=== PATIENT | male | born 1970 | race Caucasian/White ===

== ENCOUNTER 2020-01-20 01:04 | Outpatient (CLI) | payer OTHER, SELFPAY ==
[2020-01-20 16:32] LABS: SARS-CoV-2 RNA PCR Negative
== END 2020-01-20 01:05 | disposition home or self-care (01) ==
LOC: ANHCOVIDDT 01:04
PROVIDERS: PCP Internal Medicine; Visit Provider Internal Medicine Gastroenterology
DX: Z01.812 Encounter for preprocedural laboratory examination (principal); Z20.828 Contact with and (suspected) exposure to other viral communicable diseases
CPT/HCPCS: 87635; C9803; U0003

== ENCOUNTER 2020-01-22 00:29 | Day surgery (SDC) | payer OTHER, SELFPAY ==
[2020-01-10 11:37] VITALS: BMI 24.5
[2020-01-22 11:14] VITALS: BP 109/77; PULSE 95; RESP 18; TEMP 36.5; O2SAT 97; BMI 23.8
[2020-01-22] MEDS: LACTATED RINGERS 1,000 ML 150 ML IV CONT (11:19)
--- NOTE | 2020-01-22 11:27 | P.PNAN_ITS ---
Anes - Initial Pre Proc Eval Procedure: Operation Date: 01/22/20 12:15 Proposed Procedures p Esophagogastroduodenoscopy & Colonoscopy - Manfred Rock MD Date/Time: 01/22/20 11:27 Surgeon: Manfred Rock MD Pre Op Diagnosis: Diarrhea, epigastric pain Patient Data Age: 49 Gender: M Height: 5 ft 11 in Weight: 77.7 kg Last Vital Signs Temp 36.5 C 01/22/20 11:14 Pulse 95 01/22/20 11:14 Resp 18 01/22/20 11:14 BP 109/77 01/22/20 11:14 Pulse Ox 97 01/22/20 11:14 Allergies Allergy/AdvReac Type Severity Reaction Status Date / Time aspirin Allergy Hives Verified 01/22/20 11:11 Home Medications Medication Instructions Recorded Confirmed Type pantoprazole 40 mg tablet,delayed 40 mg PO QAM 12/06/19 01/10/20 History release Patient hx anesthesia problems: none Family hx anesthesia problems: none [facility] Past Medical History Medical History Blood in stool Epigastric pain Social History Social History Years smoked: 20 Smoking status: Current every day smoker Tobacco type: cigarettes Second hand tobacco smoke exposure: Yes Alcohol intake: never Substance use type: does not use Living arrangements: with family Spiritual care concerns: No Anes - Eval Final PreProcedure Day of Procedure 01/22/20 11:27 Patient weight: normal Lungs: decreased breath sounds Airway: Mallampati scale class II Neurological: alert and oriented Last oral intake: >/= 8 hours ASA classification: III Emergent: no Anesthetic plan: proceed Anesthesia type and monitoring: general GIVS and standard monitoring Informed Consent: The patient's anesthetic plan and its attendant risks and benefits were discussed with the patient/family/POA. Questions were solicited and answers provided to the satisfaction of the patient/family/POA.
--- NOTE | 2020-01-22 12:22 | PM.HPGS ---
History of Present Illness History of Present Illness Consent: Risks, benefits, and alternatives have been discussed and questions answered. Patient agrees to proceed with procedure. Chief complaint: Diarrhea, epigastric pain Narrative: Susan Antunez Jr. is a 49 year old male with epigastric pain better on ppi, also loose stools Review of Systems Constitutional: Constitutional: Denies headache(s) and Denies weakness Eyes: Eyes: Denies blurry vision ENT: Reports Normal hearing present, Denies headache(s) and Denies neck pain Cardiovascular: Cardiovascular: Denies chest pain and Denies dyspnea Respiratory: Respiratory: Denies dyspnea Gastrointestinal: Gastrointestinal: Reports no additional gastrointestinal complaints Genitourinary: Genitourinary: Denies dysuria Musculoskeletal: Musculoskeletal: Denies neck pain Integumentary/Breasts: Skin/Breast: Denies dry skin Neurologic: Reports Normal hearing present, Denies headache(s) and Denies weakness Psychiatric: Psychiatric: Denies anxiety Endocrine: Endocrine: Denies change in body appearance Hematologic/Lymphatic: Hematologic/Lymphatic: Denies easy bleeding Allergic/Immunologic: Allergic/Immunologic: Denies urticaria PMFSH Past Medical History Medical History Blood in stool Epigastric pain Social History Social History Years smoked: 20 Smoking status: Current every day smoker Tobacco type: cigarettes Second hand tobacco smoke exposure: Yes Alcohol intake: never Substance use type: does not use Living arrangements: with family Spiritual care concerns: No Meds Home Medications and Allergies Home Medications Medication Instructions Recorded Confirmed Type pantoprazole 40 mg tablet,delayed 40 mg PO QAM 12/06/19 01/10/20 History release Allergies Allergy/AdvReac Type Severity Reaction Status Date / Time aspirin Allergy Hives Verified 01/22/20 11:11 Vital Signs Vital Signs - 24 hr 01/22/20 11:14 Temperature 97.7 F Pulse Rate 95 Respiratory Rate 18 Blood Pressure 109/77 Pulse Oximetry 97 Exam Const: General: comfortable and no acute distress HENMT: General nose exam: Normal nares present Eyes: General: appearance normal, both eyes and all related structures Neck: Neck: no JVD Resp: Auscultation: clear to auscultation bilaterally Cardio: Rate: regular rate Rhythm: regular rhythm GI: Inspection: non-distended GI Palp: Yes Soft to palpation Skin: General skin exam: normal color Neuro: General: gait normal Speech: normal speech Extrem: General: normal to inspection Psych: Mental Status: mental status grossly normal Assessment and Plan Assessment and plan (1) Epigastric pain: Code(s): R10.13 - Epigastric pain Status: Acute Assessment and Plan: will proceed with egd and bx (2) Blood in stool: Code(s): K92.1 - Melena Status: Acute Assessment and Plan: colonoscopy
[2020-01-22 13:06] VITALS: BP 95/67; PULSE 76; RESP 17; O2SAT 97
[2020-01-22 13:16] VITALS: BP 100/67; PULSE 68; RESP 16; O2SAT 96
[2020-01-22 13:26] VITALS: BP 102/63; PULSE 65; RESP 17; O2SAT 99
== END 2020-01-22 13:45 | disposition home or self-care (01) ==
PROVIDERS: PCP Internal Medicine; Visit Provider Internal Medicine Gastroenterology
PROC: 0DJ08ZZ Inspection of Upper Intestinal Tract, Via Natural or Artificial Opening Endoscopic (ICD-10-PCS; CPT 43235; principal; 2020-01-22 12:15)
DX: K92.1 Melena (principal); D12.2 Benign neoplasm of ascending colon; K63.5 Polyp of colon; K29.00 Acute gastritis without bleeding; B96.81 Helicobacter pylori [H. pylori] as the cause of diseases classified elsewhere; R19.7 Diarrhea, unspecified; F17.210 Nicotine dependence, cigarettes, uncomplicated
CPT/HCPCS: 45380; 45385; 87635; 88305; 88342; C9803; J2704; J7120; U0003

== ENCOUNTER 2021-01-06 10:22 | Outpatient (CLI) | payer OTHER, SELFPAY ==
[2021-01-06 11:38] LABS: SARS-CoV-2 RNA PCR Negative (Negative)
== END 2021-01-06 10:23 | disposition home or self-care (01) ==
LOC: CHSLAB 10:24
PROVIDERS: PCP Internal Medicine; Visit Provider Internal Medicine
DX: Z20.822 Contact with and (suspected) exposure to COVID-19 (principal)
CPT/HCPCS: C9803; U0003; U0005

== ENCOUNTER 2021-04-13 11:02 | Outpatient (CLI) | payer OTHER, SELFPAY ==
[2021-04-13 12:09] LABS: Influenza A QL RT-PCR Negative (Negative); Influenza B QL RT-PCR Negative (Negative); SARS-CoV-2 RNA PCR Negative (Negative)
== END 2021-04-13 11:03 | disposition home or self-care (01) ==
LOC: CHSLAB 11:04
PROVIDERS: PCP Internal Medicine; Visit Provider Internal Medicine
DX: R50.9 Fever, unspecified (principal); R05.9 Cough, unspecified; Z20.822 Contact with and (suspected) exposure to COVID-19
CPT/HCPCS: 87502; C9803; U0003; U0005

== ENCOUNTER 2021-06-08 11:24 | Outpatient (CLI) | payer OTHER, SELFPAY ==
[2021-06-08 12:23] LABS: SARS-CoV-2 Ag Positive (Negative)
== END 2021-06-08 11:25 | disposition home or self-care (01) ==
LOC: CHSLAB 11:26
PROVIDERS: PCP Internal Medicine; Visit Provider Internal Medicine
DX: U07.1 COVID-19 (principal); J06.9 Acute upper respiratory infection, unspecified
CPT/HCPCS: 87426; C9803

== ENCOUNTER 2021-06-14 18:44 | Emergency (ER) | payer OTHER, SELFPAY ==
--- NOTE | ~2021-06-14 | XR_ITS ---
EXAMINATION: XR chest 1V portable EXAM DATE: 06/14/2021 19:39 INDICATION: COVID positive with congestion and central chest pain. TECHNIQUE: Portable AP frontal chest x-ray was obtained. There is no prior study for comparison. FINDINGS: The lungs are clear. There are no pleural effusions. The cardiomediastinal silhouette is within normal limits. There is no pneumothorax suspected. The bones and soft tissues are unremarkab le. IMPRESSION: No acute cardiopulmonary findings. Reviewed, dictated and finalized at location G. PING/RECEIVING CLERK
[2021-06-14 19:35] VITALS: BP 139/89; PULSE 79; RESP 18; TEMP 36.8; O2SAT 97
[2021-06-14 19:42] LABS: Basophils Absolute Auto 0.02 K/mm3 (0.00-0.10); Basophils Percent Auto 0.4 % (0.0-1.0); Eosinophils Absolute Auto 0.07 K/mm3 (0.02-0.50); Eosinophils Percent Auto 1.5 % (1.0-6.0); Hematocrit 48.3 % (40.0-54.0); Hemoglobin 16.7 g/dL (14.0-18.0); Immature Granulocyte Absolute 0.01 K/mm3 (0.00-0.00); Immature Granulocyte Percent A 0.2 % (0.0-0.0); Lymphocytes Absolute Auto 1.63 K/mm3 (1.10-4.50); Lymphocytes Percent Auto 34.7 % (18.0-42.0); Mean Corpuscular HGB Conc 34.6 g/dL (32.0-36.0); Mean Corpuscular Hemoglobin 30.5 pg (27.0-31.0); Mean Corpuscular Volume 88.3 fL (78.0-102.0); Mean Platelet Volume 9.9 fl (8.7-11.0); Monocytes Absolute Auto 0.39 K/mm3 (0.10-0.90); Monocytes Percent Auto 8.3 % (2.0-11.0); Neutrophils Absolute Auto 2.6 K/mm3 (1.7-7.2); Neutrophils Percent Auto 54.9 % (50.0-70.0); Platelet Count Result 181 K/mm3 (150-420); Red Blood Count 5.47 M/mm3 (4.70-6.10); Red Cell Distribution Width 12.2 % (11.6-14.4); White Blood Count 4.7 K/mm3 (4.8-10.8)
--- NOTE | 2021-06-14 19:43 | ED.HA ---
HPI - Headache General Chief Complaint: Headache Stated Complaint: COVID+,headache,congestion,SOB Time Seen by Provider: 06/14/21 19:43 Source: patient Mode of arrival: ambulatory Limitations: no limitations History of Present Illness HPI Narrative: this is a 51-year-old gentleman that recently tested positive for COVID and presents to the ER with some headache with body aches currently O2 sats 97% patient is afebrile with no shortness of breath no chest pain no abdominal pain no diarrhea constipation. MD elicited complaint: headache Onset (ago): day(s) Onset description: gradually Severity: moderate Quality & Timing: aching Related Data Allergies Allergy/AdvReac Type Severity Reaction Status Date / Time aspirin Allergy Hives Verified 01/22/20 11:11 Review of Systems Review of Systems: All systems reviewed & are unremarkable except as noted in HPI and below PMFSH Past Medical History Medical History (Updated 06/14/21 @ 20:09 by Jareth Beyer MD) Blood in stool Epigastric pain Social History Social History Years smoked: 20 Smoking status: Current every day smoker Tobacco type: cigarettes Second hand tobacco smoke exposure: Yes Alcohol intake: never Substance use type: does not use Spiritual care concerns: No Exam Const: General: no acute distress Orientation/consciousness: patient oriented x3 HENMT: Head: normal to inspection Eyes: Conjunctivae: conjunctivae normal Pupils: Equal, round and reactive pupils present Neck: Neck: normal visual inspection, no lymphadenopathy and no meningeal signs Chest: Chest palpation & inspection: normal inspection of the chest Resp: Effort & Inspection: normal respiratory effort Auscultation: clear to auscultation bilaterally Cardio: Rate: regular rate Rhythm: regular rhythm GI: GI Palp: Yes Soft to palpation Percussion: Yes normal to percussion Urinary Catheter: Urinary Catheter: patent and draining Back/Spine/Pelvis: Back: no CVA tenderness Skin: General skin exam: normal color Rashes: no rashes Neuro: General: patient oriented x3, moves all extremities, no meningeal signs and no focal motor deficits Extrem: General: normal to inspection and no pedal edema Psych: Mental Status: mental status grossly normal Affect: normal affect Course Course Emergency Course: Patient's x-ray and blood work reviewed with patient patient received IV fluids albuterol MDI and dose of Tylenol. Vital Signs Vital signs: Vital Signs Temperature 36.8 C 06/14/21 19:35 Pulse Rate 79 06/14/21 19:35 Respiratory Rate 18 06/14/21 19:35 Blood Pressure 139/89 06/14/21 19:35 Pulse Oximetry 97 06/14/21 19:35 Temperature 36.8 C 06/14/21 19:35 Pulse Rate 79 06/14/21 19:35 Respiratory Rate 18 06/14/21 19:35 Blood Pressure 139/89 06/14/21 19:35 Pulse Oximetry 97 06/14/21 19:35 MDM - Headache Lab Data Result diagrams: 06/14/21 19:38 06/14/21 19:38 Labs: Lab Results 06/14/21 06/14/21 Range/Units 19:38 19:38 WBC 4.7 L (4.8-10.8) K/mm3 RBC 5.47 (4.70-6.10) M/mm3 Hgb 16.7 (14.0-18.0) g/dL Hct 48.3 (40.0-54.0) % MCV 88.3 (78.0-102.0) fL MCH 30.5 (27.0-31.0) pg MCHC 34.6 (32.0-36.0) g/dL RDW 12.2 (11.6-14.4) % Plt Count 181 (150-420) K/mm3 MPV 9.9 (8.7-11.0) fl Immature Gran % (Auto) 0.2 H (0.0-0.0) % Neut % (Auto) 54.9 (50.0-70.0) % Lymph % (Auto) 34.7 (18.0-42.0) % Fleming % (Auto) 8.3 (2.0-11.0) % Eos % (Auto) 1.5 (1.0-6.0) % Baso % (Auto) 0.4 (0.0-1.0) % Lymph # (Auto) 1.63 (1.10-4.50) K/mm3 Fleming # (Auto) 0.39 (0.10-0.90) K/mm3 Eos # (Auto) 0.07 (0.02-0.50) K/mm3 Baso # (Auto) 0.02 (0.00-0.10) K/mm3 Abs Immat Gran (auto) 0.01 H (0.00-0.00) K/mm3 Absolute Neuts (auto) 2.6 (1.7-7.2) K/mm3 Absolute Nucleated RBC 0.00 (0.00-0.00) K/mm3 Nucleat
[2021-06-14] MEDS: ACETAMINOPHEN 500 MG TABLET 1000 MG PO (19:56)
[2021-06-14] MEDS: SODIUM CHLORIDE 0.9% IV 1,000 ML 999 ML IV CONT (19:57)
[2021-06-14 19:59] LABS: Alanine Aminotransferase 34 U/L (16-63); Albumin Level 3.4 g/dL (3.4-5.0); Alkaline Phosphatase 58 U/L (46-116); Anion Gap 12 mmol/L (8-16); Aspartate Amino Transferase 16 U/L (15-37); Bilirubin,Total 0.3 mg/dL (0.00-1.00); Blood Urea Nitrogen 14 mg/dL (7-18); Calcium 8.8 mg/dL (8.5-10.1); Carbon Dioxide 24 mmol/L (21-32); Chloride 104 mmol/L (98-108); Estimated CRCL calculation 70 ml/min; Estimated Glomerular Filt Rate > 60; Glucose 117 mg/dL (70-99); Osmolality Calculated 291 mOsm/kg (285-295); Potassium 3.5 mmol/L (3.5-5.1); Sodium 140 mmol/L (136-145); Total Protein 7.1 g/dL (6.4-8.2)
[2021-06-14] MEDS: ALBUTEROL SULFATE (*SP) INHALER 2 PUFF INHALATION (20:02)
[2021-06-14 20:22] VITALS: PULSE 79; RESP 18; O2SAT 97
[2021-06-14 21:28] VITALS: BP 125/88; PULSE 72; RESP 18; TEMP 36.7; O2SAT 97
== END 2021-06-14 21:31 | disposition home or self-care (01) ==
PROVIDERS: Emergency Provider Emergency Medicine; PCP Internal Medicine
DX: U07.1 COVID-19 (principal)
CPT/HCPCS: 36415; 71045; 80053; 85025; 99283; A9270; J7030

== ENCOUNTER 2022-01-06 13:52 | Outpatient (CLI) | payer OTHER, SELFPAY ==
[2022-01-06 14:04] LABS: Basophils Absolute Auto 0.04 K/mm3 (0.00-0.10); Basophils Percent Auto 0.6 % (0.0-1.0); Eosinophils Absolute Auto 0.15 K/mm3 (0.02-0.50); Eosinophils Percent Auto 2.2 % (1.0-6.0); Hematocrit 48.9 % (40.0-54.0); Hemoglobin 16.3 g/dL (14.0-18.0); Immature Granulocyte Absolute 0.01 K/mm3 (0.00-0.00); Immature Granulocyte Percent A 0.1 % (0.0-0.0); Lymphocytes Absolute Auto 2.04 K/mm3 (1.10-4.50); Lymphocytes Percent Auto 29.9 % (18.0-42.0); Mean Corpuscular HGB Conc 33.3 g/dL (32.0-36.0); Mean Corpuscular Hemoglobin 30.2 pg (27.0-31.0); Mean Corpuscular Volume 90.7 fL (78.0-102.0); Mean Platelet Volume 9.5 fl (8.7-11.0); Monocytes Absolute Auto 0.51 K/mm3 (0.10-0.90); Monocytes Percent Auto 7.5 % (2.0-11.0); Neutrophils Absolute Auto 4.1 K/mm3 (1.7-7.2); Neutrophils Percent Auto 59.7 % (50.0-70.0); Platelet Count Result 263 K/mm3 (150-420); Red Blood Count 5.39 M/mm3 (4.70-6.10); Red Cell Distribution Width 12.7 % (11.6-14.4); White Blood Count 6.8 K/mm3 (4.8-10.8)
[2022-01-06 14:06] LABS: Add Urine Microscopic? NO; Appearance Urine Clear (Clear); Bilirubin Urine Negative (Negative); Blood Urine Negative (Negative); Color Urine Yellow (Yellow); Glucose Urine UA Negative (Negative); Ketones Urine Negative (Negative); Leukocyte Esterase Ur Negative (Negative); Nitrate Urine Negative (Negative); Protein Urine Negative (Negative); Specific Grav Ur 1.025 (1.010-1.020); Urobilinogen Urine 0.2 mg/dL (0.2-1.0)
[2022-01-06 14:31] LABS: Alanine Aminotransferase 33 U/L (16-63); Albumin Level 3.8 g/dL (3.4-5.0); Alkaline Phosphatase 75 U/L (46-116); Amylase 57 U/L (25-115); Anion Gap 6 mmol/L (8-16); Aspartate Amino Transferase 20 U/L (15-37); Bilirubin,Total 0.3 mg/dL (0.00-1.00); Blood Urea Nitrogen 16 mg/dL (7-18); Calcium 9.3 mg/dL (8.5-10.1); Carbon Dioxide 27 mmol/L (21-32); Chloride 104 mmol/L (98-108); Estimated Glomerular Filt Rate > 60; Glucose 91 mg/dL (70-99); Lipase 85 U/L (73-393); Osmolality Calculated 285 mOsm/kg (285-295); Potassium 3.9 mmol/L (3.5-5.1); Prostate Specific Antigen 4.8 ng/mL (< OR = 4.0); Sodium 137 mmol/L (136-145); Total Protein 7.3 g/dL (6.4-8.2)
== END 2022-01-06 13:53 | disposition home or self-care (01) ==
LOC: CHSLAB 13:54
PROVIDERS: PCP Internal Medicine; Visit Provider Nurse Practitioner Family
DX: R30.0 Dysuria (principal); N41.9 Inflammatory disease of prostate, unspecified; R10.9 Unspecified abdominal pain; M54.9 Dorsalgia, unspecified
CPT/HCPCS: 36415; 80053; 81003; 82150; 83690; 84153; 85025; 87086

== ENCOUNTER 2022-02-01 15:04 | Outpatient (CLI) | payer OTHER, SELFPAY ==
[2022-02-01 16:26] LABS: Prostate Specific Antigen 5.3 ng/mL (< OR = 4.0)
== END 2022-02-01 15:05 | disposition home or self-care (01) ==
LOC: CHSLAB 15:06
PROVIDERS: PCP Internal Medicine; Visit Provider Internal Medicine
DX: N41.9 Inflammatory disease of prostate, unspecified (principal)
CPT/HCPCS: 36415; 84153

== ENCOUNTER 2022-11-19 07:18 | Outpatient (CLI) | payer OTHER, SELFPAY ==
[2022-11-19 07:29] LABS: Basophils Absolute Auto 0.02 K/mm3 (0.00-0.10); Basophils Percent Auto 0.3 % (0.0-1.0); Eosinophils Absolute Auto 0.15 K/mm3 (0.02-0.50); Eosinophils Percent Auto 1.9 % (1.0-6.0); Hematocrit 48.7 % (40.0-54.0); Hemoglobin 16.4 g/dL (14.0-18.0); Immature Granulocyte Absolute 0.02 K/mm3 (0.00-0.00); Immature Granulocyte Percent A 0.3 % (0.0-0.0); Lymphocytes Absolute Auto 1.81 K/mm3 (1.10-4.50); Lymphocytes Percent Auto 23.5 % (18.0-42.0); Mean Corpuscular HGB Conc 33.7 g/dL (32.0-36.0); Mean Corpuscular Hemoglobin 30.9 pg (27.0-31.0); Mean Corpuscular Volume 91.9 fL (78.0-102.0); Mean Platelet Volume 9.3 fl (8.7-11.0); Monocytes Absolute Auto 0.46 K/mm3 (0.10-0.90); Neutrophils Absolute Auto 5.2 K/mm3 (1.7-7.2); Platelet Count Result 248 K/mm3 (150-420); Red Cell Distribution Width 12.5 % (11.6-14.4); White Blood Count 7.7 K/mm3 (4.8-10.8)
[2022-11-19 07:36] LABS: Appearance Urine Clear (Clear); Bilirubin Urine Negative (Negative); Blood Urine Negative (Negative); Color Urine Yellow (Yellow); Glucose Urine UA Negative (Negative); Ketones Urine Negative (Negative); Leukocyte Esterase Ur Negative (Negative); Nitrate Urine Negative (Negative); Protein Urine Negative (Negative); Specific Grav Ur 1.025 (1.010-1.020); Urobilinogen Urine 0.2 mg/dL (0.2-1.0); pH Urine 5.5 (5.0-8.0)
[2022-11-19 07:37] LABS: Add Urine Microscopic? NO
[2022-11-19 08:35] LABS: Alanine Aminotransferase 28 U/L (16-63); Albumin Level 3.6 g/dL (3.4-5.0); Alkaline Phosphatase 78 U/L (46-116); Anion Gap 7 mmol/L (8-16); Aspartate Amino Transferase 17 U/L (15-37); Bilirubin,Total 0.6 mg/dL (0.00-1.00); Blood Urea Nitrogen 15 mg/dL (7-18); Calcium 9.3 mg/dL (8.5-10.1); Carbon Dioxide 28 mmol/L (21-32); Chloride 106 mmol/L (98-108); Cholesterol 194 mg/dL (0-200); Estimated Glomerular Filt Rate > 60; Glucose 102 mg/dL (70-99); HDL Direct 40 mg/dL (40-60); LDL Cholesterol Calculated 135 mg/dL (<130); Osmolality Calculated 292 mOsm/kg (285-295); Potassium 4.6 mmol/L (3.5-5.1); Prostate Specific Antigen 5.3 ng/mL (< OR = 4.0); Sodium 141 mmol/L (136-145); Thyroid Stimulating Hormone 2.41 uIU/mL (0.36-3.74); Total Protein 6.8 g/dL (6.4-8.2); Triglycerides 95 mg/dL (0-150)
== END 2022-11-19 07:19 | disposition home or self-care (01) ==
LOC: CHSLAB 07:19
PROVIDERS: PCP Internal Medicine; Visit Provider Internal Medicine
DX: Z00.00 Encounter for general adult medical examination without abnormal findings (principal)
CPT/HCPCS: 36415; 80053; 80061; 81003; 84153; 84443; 85025; G0103

== ENCOUNTER 2022-11-23 07:45 | Outpatient (CLI) | payer OTHER, SELFPAY ==
--- NOTE | ~2022-11-23 | CT_ITS ---
EXAMINATION: CT lung screening DATE: 11/23/2022 08:05 INDICATION: Personal history nicotine dependence, current smoker with 30 pack year history TECHNIQUE: Computed tomography (CT) of the chest was performed without intravenous contrast. The dose -length product (DLP) was 161.34 mGy-cm. 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 COMPARISON: None FINDINGS: There is mild emphysema. There is a 6 mm non solid nodule of the right upper lobe. The lung s are free of acute opacities. No pathologically enlarged thoracic lymph nodes are identified. The he art size is normal. No pleural effusion or pneumothorax. There is mild bilateral gynecomastia. A smal l sliding hiatal hernia is noted. There is mild thoracic spondylosis. IMPRESSION: 1. Lung-RADS category 2: Benign appearance or behavior. Continue annual screening with noncontrast lo w-dose chest CT in 12 months. Reviewed, dictated and finalized at location B. IMPRESSION: 1. Lung-RADS category 2: Benign appearance or behavior. Continue annual screeni ng with noncontrast low-dose chest CT in 12 months.
== END 2022-11-23 07:46 | disposition home or self-care (01) ==
LOC: CHSIMG 07:46
PROVIDERS: PCP Internal Medicine; Visit Provider Internal Medicine
DX: Z12.2 Encounter for screening for malignant neoplasm of respiratory organs (principal); Z87.891 Personal history of nicotine dependence
CPT/HCPCS: 71271

== ENCOUNTER 2023-12-16 07:09 | Outpatient (CLI) | payer OTHER, SELFPAY ==
[2023-12-16 08:00] LABS: Hematocrit 50.3 % (40.0-54.0); Hemoglobin 17.1 g/dL (14.0-18.0); Mean Corpuscular Hemoglobin 30.3 pg (27.0-31.0); Mean Corpuscular Volume 89.2 fL (78.0-102.0); Mean Platelet Volume 9.7 fl (8.7-11.0); Platelet Count Result 267 K/mm3 (150-420); Red Blood Count 5.64 M/mm3 (4.70-6.10); Red Cell Distribution Width 12.4 % (11.6-14.4); White Blood Count 6.6 K/mm3 (4.8-10.8)
[2023-12-16 08:34] LABS: Alanine Aminotransferase 29 U/L (16-63); Albumin Level 3.6 g/dL (3.4-5.0); Alkaline Phosphatase 74 U/L (46-116); Anion Gap 9 mmol/L (4-12); Aspartate Amino Transferase 16 U/L (15-37); Bilirubin,Total 0.4 mg/dL (0.00-1.00); Blood Urea Nitrogen 15 mg/dL (7-18); Calcium 9.1 mg/dL (8.5-10.1); Carbon Dioxide 25 mmol/L (21-32); Chloride 105 mmol/L (98-108); Cholesterol 217 mg/dL (0-200); Estimated Glomerular Filt Rate > 60; Glucose 118 mg/dL (70-99); HDL Direct 43 mg/dL (40-60); LDL Cholesterol Calculated 149 mg/dL (<130); Osmolality Calculated 289 mOsm/kg (285-295); Potassium 4.1 mmol/L (3.5-5.1); Sodium 139 mmol/L (136-145); Thyroid Stimulating Hormone 2.12 uIU/mL (0.36-3.74); Triglycerides 124 mg/dL (0-150)
== END 2023-12-16 07:10 | disposition home or self-care (01) ==
LOC: CHSLAB 07:12
PROVIDERS: PCP Internal Medicine; Visit Provider Internal Medicine
DX: Z00.00 Encounter for general adult medical examination without abnormal findings (principal)
CPT/HCPCS: 36415; 80053; 80061; 84443; 85027

== ENCOUNTER 2025-01-31 00:29 | Day surgery (SDC) | payer OTHER, SELFPAY ==
[2025-01-16 11:53] VITALS: BMI 28.1
--- OUTSIDE RECORDS SUMMARY | 2025-01-31 00:31 | XMS_ITS | Clinical Summary ---
Author Organization [facility] Address [address] [place] [id number] Care Team Providers Care Dredge Pipe Installer Name Role Phone Obi Villa MD Primary Care Provider [phone] Allergies Active Allergy Reactions Criticality Noted Date Comments Aspirin Unknown 11/09/2019 Medications ondansetron 4 MG disintegrating tablet Take 1 tablet (4 mg total) by mouth every 8 (eight) hours as needed for Nausea. 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 Gender Identity Not on file Sexual Orientation Not on file Last Filed Vital Signs Vital Sign Reading Time Taken Comments Blood Pressure 125/81 11/09/2019 11:30 AM CDT Pulse 65 11/09/2019 11:30 AM CDT Temperature 36.7 C (98 F) 11/09/2019 9:39 AM CDT Respiratory Rate 18 11/09/2019 11:30 AM CDT Oxygen Saturation 98% 11/09/2019 11:30 AM CDT Inhaled Oxygen Concentration - - Weight 81.6 kg (180 lb) 11/09/2019 9:36 AM CDT Height 175.3 cm (5' 9) 11/09/2019 9:36 AM CDT Body Mass Index 26.58 11/09/2019 9:36 AM CDT Plan of Treatment Health Maintenance Due Date Last Done Comments Colorectal Cancer Screening Colonoscopy (10 Years) 1971 Annual Physical 1974 Hepatitis C 1989 DTaP, Tdap and Td Vaccines ( 1 - Tdap) 1990 Hepatitis B Vaccines (1 of 3 - 19+ 3-dose series) 1990 Pneumococcal Vaccine: 50+ Ye ars (1 of 2 - PCV) 1990 Zoster Vaccines (1 of 2) 2021 COVID-19 Vaccine (1 - 2023-2 5 season) 2025 Meningococcal B Vaccine Aged Out No l onger eligible based on patient's age to complete this topic Meningococcal Vaccine Aged Out No james elinor eligible based on patient's age to complete this topic RSV Immunizations Under 20 Months Aged Out No longer eligible based on patient's age to complete this topic Insurance [facility] Care Teams Dredge Pipe Installer Relationship Specialty Start Date End Date Obi Villa MD [address] [place] [address] PCP - General INTERNAL MEDICINE 11/09/19
[2025-01-31 07:13] VITALS: BP 198/139; PULSE 70; RESP 18; TEMP 36.1; O2SAT 98
--- NOTE | 2025-01-31 07:23 | WPDANESEPPF ---
Anes - Initial Pre Proc Eval Procedure: Operation Date: 01/31/25 08:30 Proposed Procedures p EGD & Screening Colonoscopy - Manfred Rock MD Date/Time: 01/31/25 07:23 Surgeon: Manfred Rock MD Pre Op Diagnosis: GERD/epigastric pain/screening Patient Data Age: 54 Gender: M Height: 1.75 m Weight: 78.3 kg Last Vital Signs Temp 36.1 C L 01/31/25 07:13 Pulse 70 01/31/25 07:13 Resp 18 01/31/25 07:13 BP 198/139 H 01/31/25 07:13 Pulse Ox 98 01/31/25 07:13 O2 Del Method Room Air 01/31/25 07:13 Allergies Allergy/AdvReac Type Severity Reaction Status Date / Time aspirin Allergy Hives Verified 01/31/25 07:12 Home Medications ?Medication ?Instructions ?Recorded ?Confirmed ?Type albuterol sulfate 90 mcg/actuation 2 puff inhalation QID PRN 06/14/21 01/16/25 Rx aerosol inhaler (ProAir HFA) shortness of breath or wheezing #6.7 grams pantoprazole 40 mg tablet,delayed 40 mg PO QAM 01/16/25 01/31/25 History release tamsulosin 0.4 mg capsule 0.4 mg PO Q24H 01/16/25 01/31/25 History Patient hx anesthesia problems: none Family hx anesthesia problems: none Results Review: All pre-operative results and documents have been reviewed as part of the pre-operative evaluation. [facility] Past Medical History Medical History (Updated 01/31/25 @ 07:23 by Nic Bhakta MD) Smoker Colon polyps Epigastric pain Blood in stool Surgical History Surgical History (Updated 01/31/25 @ 07:23 by Nic Bhakta MD) H/O colonoscopy Social History Social History Years smoked: 20 Smoking status: Current every day smoker Tobacco type: cigarettes Second hand tobacco smoke exposure: Yes Alcohol intake: never Substance use type: does not use Living arrangements: with family Spiritual care concerns: No Anes - Eval Final PreProcedure Day of Procedure 01/31/25 07:23 Patient weight: normal Heart: regular rate and rhythm Lungs: clear to auscultation Airway: Mallampati scale class II Neurological: alert and oriented Last oral intake: >/= 8 hours ASA classification: III Emergent: no Anesthetic plan: proceed Anesthesia type and monitoring: general GIVS and standard monitoring Results Review: All pre-operative results and documents have been reviewed as part of the pre-operative evaluation. Informed Consent: The patient's anesthetic plan and its attendant risks and benefits were discussed with the patient/family/POA. Questions were solicited and answers provided to the satisfaction of the patient/family/POA.
[2025-01-31] MEDS: LACTATED RINGERS 1,000 ML 150 ML IV CONT (07:24)
--- NOTE | 2025-01-31 08:02 | SUR.PREOP ---
DR BONILLA NOTIFIED OF PT'S BLOOD PRESSURE 198/139, NO NEW ORDERS, DR ROSIE PT.
--- NOTE | 2025-01-31 08:13 | PM.HPGS ---
History of Present Illness History of Present Illness Consent: Risks, benefits, and alternatives have been discussed and questions answered. Patient agrees to proceed with procedure. Chief complaint: GERD/epigastric pain/screening Narrative: Susan Antunez Jr. is a 54 year old male with colon polyp in 2019, gerd on ppi, had + H pylori Review of Systems Review of Systems: All systems reviewed & are unremarkable except as noted in HPI and below PMFSH Past Medical History Medical History (Updated 01/31/25 @ 08:14 by Manfred Rock MD) Colon polyps Smoker Epigastric pain Blood in stool Surgical History Surgical History (Updated 01/31/25 @ 07:23 by Nic Bhakta MD) H/O colonoscopy Social History Social History Years smoked: 20 Smoking status: Current every day smoker Tobacco type: cigarettes Second hand tobacco smoke exposure: Yes Alcohol intake: never Substance use type: does not use Living arrangements: with family Spiritual care concerns: No Meds Home Medications and Allergies Home Medications ?Medication ?Instructions ?Recorded ?Confirmed ?Type albuterol sulfate 90 mcg/actuation 2 puff inhalation QID PRN 06/14/21 01/16/25 Rx aerosol inhaler (ProAir HFA) shortness of breath or wheezing #6.7 grams pantoprazole 40 mg tablet,delayed 40 mg PO QAM 01/16/25 01/31/25 History release tamsulosin 0.4 mg capsule 0.4 mg PO Q24H 01/16/25 01/31/25 History Allergies Allergy/AdvReac Type Severity Reaction Status Date / Time aspirin Allergy Hives Verified 01/31/25 07:12 Vital Signs Vital Signs - 24 hr 01/31/25 07:13 Temperature 97 F L Pulse Rate 70 Respiratory Rate 18 Blood Pressure 198/139 H Pulse Oximetry 98 Oxygen Delivery Room Air Exam Const: General: comfortable and no acute distress HENMT: Face/Nose/Sinus: Normal nares present Eyes: General: appearance normal, both eyes and all related structures Neck: Neck: no JVD Resp: Auscultation: clear to auscultation bilaterally Cardio: Rate: regular rate Rhythm: regular rhythm GI: Inspection: non-distended GI Palp: Yes Soft to palpation Skin: General skin exam: normal color Neuro: Speech: normal speech Extrem: General: normal to inspection Psych: Mental Status: mental status grossly normal Assessment and Plan Assessment and plan (1) Acid reflux: Qualifiers: Esophagitis presence: without esophagitis Qualified Code(s): K21.9 - Gastro-esophageal reflux disease without esophagitis Code(s): K21.9 - Gastro-esophageal reflux disease without esophagitis Status: Acute Assessment and Plan: egd with bx (2) Colon polyps: Qualifiers: Colon polyp type: adenomatous Colon location: ascending Qualified Code(s): D12.2 - Benign neoplasm of ascending colon Code(s): K63.5 - Polyp of colon Status: Acute Assessment and Plan: colonoscopy
[2025-01-31] MEDS: BENZOCAINE (*SP) 60 ML SPRAY CAN (HURRICAINE) 1 SPRAY MUCOUS MEM (08:20)
--- NOTE | 2025-01-31 08:29 | S_PTH ---
PATIENT: Susan Antunez Jr. LOC: [facility]#:[id number] AGE/SX: 54/M ROOM: RE01/31/[address]: Manfred Rock MD : 1970 BED: DIS: 01/31/2025 SPEC #: [id number] RECD: 01/31/25 09:46 STATUS: DEANA RELeonor #: [id number] CARLOS: 01/31/25 08:[address]: Manfred Rock DEPT: [facility] Surgical RECD BY: Jeannette Miller ENTERED: 01/31/25 09:46 SP TYPE: Surgical OTHR DR: Obi Villa MD Tissues: A - Gastric Biopsy B - Colon Polypectomy Procedures: Hematoxylin and Eosin Stain Gross and Microscopic Level 4
--- NOTE | 2025-01-31 08:29 | SUR.OPER ---
EGD: COLON: Start 827
[2025-01-31 08:41] VITALS: BP 103/74; PULSE 64; RESP 18; O2SAT 98
[2025-01-31 08:51] VITALS: BP 110/72; PULSE 63; RESP 18; O2SAT 98
[2025-01-31 09:01] VITALS: BP 121/74; PULSE 68; RESP 18; O2SAT 98
[2025-01-31 09:59] LABS: HPYLORIRESULT Negative (Negative)
== END 2025-01-31 09:09 | disposition home or self-care (01) ==
PROVIDERS: PCP Internal Medicine; Referring Provider Internal Medicine; Visit Provider Internal Medicine Gastroenterology
PROC: 0DJ08ZZ Inspection of Upper Intestinal Tract, Via Natural or Artificial Opening Endoscopic (ICD-10-PCS; CPT 45378; principal; 2025-01-31 08:30)
DX: Z12.11 Encounter for screening for malignant neoplasm of colon (principal); D12.2 Benign neoplasm of ascending colon; K64.8 Other hemorrhoids; K21.00 Gastro-esophageal reflux disease with esophagitis, without bleeding; K29.70 Gastritis, unspecified, without bleeding; F17.210 Nicotine dependence, cigarettes, uncomplicated
CPT/HCPCS: 45385; 43239; 87081; 88305; J2003; J2704; J7120

== ENCOUNTER 2025-03-09 18:36 | Emergency (ER) | payer OTHER, SELFPAY ==
--- NOTE | ~2025-03-09 | XR_ITS ---
EXAMINATION: XR chest 1V portable COMPARISON: No comparisons available. HISTORY: Onset 1700, Shortness of breath FINDINGS: The lungs are clear, no effusion. No pneumothorax. Heart is normal size. Mediastinal and hilar contours are within normal limits. Bony thorax no acute abnormality. Miscellaneous: None Impression: No acute cardiopulmonary abnormality. Reviewed, dictated and finalized at location P. Impression: No acute cardiopulmonary abnormality.
[2025-03-09 18:36] VITALS: O2SAT 97
[2025-03-09 18:37] VITALS: BP 140/96; PULSE 108; RESP 22; TEMP 36.6; O2SAT 94
--- OUTSIDE RECORDS SUMMARY | 2025-03-09 18:38 | XMS_ITS | Clinical Summary ---
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 Gender Identity Not on file Sexual Orientation [...] of 2) 2021 COVID-19 Vaccine (1 - 2024-2 6 season) 2025 Influenza Adult (#1) 2025 Hepatitis A Vaccines Aged Out No long er eligible based on patient's age to complete this topic Meningococcal B Vaccine Aged Out No l onger eligible based on patient's age to complete this topic Meningococcal Vaccine Aged Out No james elinor eligible based on patient's age to complete this topic RSV Immunizations Under 20 Months Aged Out No longer eligible based on patient's age to complete this topic Insurance Care Teams Forest Science Professor Relationship Specialty Start Date End Date Obi Villa MD [address] [place] [address] PCP - General INTERNAL MEDICINE 11/09/19
--- NOTE | 2025-03-09 18:43 | ECG_ITS ---
Test Date: 2025-03-09 18:50:27 Measurements Intervals [place] Rate: 91 P: 52 AR: 162 QRS: 38 QRSD: 85 T: 75 QT: 345 QTc: 426 Interpretive Statements SINUS RHYTHM BASELINE ARTIFACT- I, II, III, AVR, AVL, AVF, V1-V6 NORMAL ECG No previous ECG available for comparison Electronically Signed On 03-09-2025 19:23:22 CDT by Hao Leo D.O.
--- NOTE | 2025-03-09 18:43 | ED.SOB ---
HPI - SOB/Dyspnea General Chief Complaint: Shortness of Breath/Dyspnea Stated Complaint: sob Time Seen by Provider: 03/09/25 18:43 Source: patient Mode of arrival: ambulatory Limitations: no limitations History of Present Illness HPI Narrative: 54 years old white male came to the emergency room from home by private car complaining of headache, runny nose, nasal and postnasal discharge , productive cough of clear sputum and shortness of breath started 2 hours after cleaning a wood shed this morning. Patient does not take medicine at home, smokes cigarettes, uses marijuana occasionally denies alcohol intake. In the ED patient denies any fever, chills, nausea, vomiting, sick contact or chest pain. Related Data Home Medications ?Medication ?Instructions ?Recorded ?Confirmed ?Last Taken ?Type pantoprazole 40 mg tablet,delayed 40 mg PO QAM 01/16/25 01/31/25 01/30/25 History release tamsulosin 0.4 mg capsule 0.4 mg PO Q24H 01/16/25 01/31/25 01/30/25 History Allergies Allergy/AdvReac Type Severity Reaction Status Date / Time aspirin Allergy Hives Verified 03/09/25 18:40 Review of Systems Review of Systems: All systems reviewed & are unremarkable except as noted in HPI and below PMFSH Past Medical History Medical History Colon polyps Smoker Epigastric pain Blood in stool Surgical History Surgical History H/O colonoscopy Social History Social History Smoking packs per day: 1.5 Smoking cigarettes per day: 30.0 Years smoked: 20 Smoking pack-years: 30.00 Smoking status: Current every day smoker Tobacco type: cigarettes Second hand tobacco smoke exposure: Yes Alcohol intake: never Substance use: never Substance use type: does not use Living arrangements: with family Spiritual care concerns: No Exam Narrative: General appearance: Well-developed, well-nourished Skin: Normal color Head: Normocephalic, nontraumatic Eyes: Clear conjunctiva ENT: Oropharynx normal, ears normal, nasal congestion Neck: Supple, nontender Chest and respiratory: Airway patent, mild labored breathing, diminution of air entry bilaterally, expiratory wheezing bilaterally Heart: Regular rate/rhythm Abdomen: Soft, nontender, no organomegaly, quiet bowel sounds Vascular: Normal peripheral pulses, normal capillary refill. Musculoskeletal: Normal range of motion, nontender back Neurologic: Alert and oriented ?3, PATHOLOGY LABORATORY DIRECTOR is normal as tested, no gross motor deficit Course Vital Signs Vital signs: Vital Signs Pulse Oximetry 97 03/09/25 18:36 Oxygen Delivery Autopap 03/09/25 18:36 Temperature 36.6 C 03/09/25 18:37 Pulse Rate 108 H 03/09/25 18:37 Respiratory Rate 22 H 03/09/25 18:37 Blood Pressure 140/96 H 03/09/25 18:37 Pulse Oximetry 94 03/09/25 18:37 Oxygen Delivery Room Air 03/09/25 18:37 MDM - SOB/Dyspnea MDM Narrative Medical decision making narrative: Patient came with the above symptoms Vital signs showing heart rate of 108 respiration 22 otherwise within normal limit Physical examination showing patient was hoarseness of voice, nasal congestion, expiratory wheezing bilaterally Differential diagnosis include asthma, COPD exacerbation, upper respiratory viral infection, less likely pneumonia or coronary artery disease or congestive heart failure Blood workup today includes CBC, CMP, troponin, pro BMP showed WBC 12.4, creatinine 1.4, otherwise within normal limit Blood gas on room air showed pH of 7.5 pCO2 27 oxygen saturation 94.8% Patient tested negative for COVID flu and RSV Chest x-ray showed no acute cardiopulmonary EKG on arrival showed normal sinus rhythm Diagnosis COPD, asthma exacerbation Discharged on prednisone, albuterol, Symbicort. Patient received 10 mg of albuterol and 0.5 mg of ipratropium nebulizer treatment, 60 mg prednisone p.o. with remarkable improvement. The pt was discharged to home.the pt,s condition upon discharge was fair,education was provided to the pt in reference to the final impression,discharge study results,treatment,prognosis and need for follow up . Differential Diagnosis Differential diagnosis: Likely acute exacerbation of chronic obstructive airways disease, congestive heart failure, community acquired pneumonia and asthma with exacerbation Medical Records Attestation: I reviewed the patient's medical records. Lab Data Attestation: I reviewed the patient's lab results. 03/09/25 19:07 03/09/25 19:07 Labs: Lab Results 03/09/25 03/09/25 Range/Units 18:46 19:07 WBC 12.4 H (4.8-10.8) K/mm3 RBC 5.27 (4.70-6.10) M/mm3 Hgb 16.0 (14.0-18.0) g/dL Hct 47.4 (40.0-54.0) % MCV 89.9 (78.0-102.0) fL MCH 30.4 (27.0-31.0) pg MCHC 33.8 (32-36) g/dL RDW 12.4 (11.6-14.4) % Plt Count 239 (150-420) K/mm3 MPV 9.5 (8.7-11.0) fl Immature Gran % (Auto) 0.2 H (0.0-0.0) % Neut % (Auto) 74.4 H (50.0-70.0) % Lymph % (Auto) 18.2 (18.0-42.0) % Webster % (Auto) 5.6 (2.0-11.0) % Eos % (Auto) 1.3 (1.0-6.0) % Baso % (Auto) 0.3 (0.0-1.0) % Lymph # (Auto) 2.26 (1.10-4.50) K/mm3 Webster # (Auto) 0.70 (0.10-0.90) K/mm3 Eos # (Auto) 0.16 (0.02-0.50) K/mm3 Baso # (Auto) 0.04 (0.00-0.10) K/mm3 Abs Immat Gran (auto) 0.03 H (0.00-0.00) K/mm3 Absolute Neuts (auto) 9.22 H (1.70-7.20) K/mm3 Absolute Nucleated RBC 0.00 (0.00-0.00) K/mm3 Nucleated RBC % 0.0 (0-0.0) % Sodium 142 (137-145) mmol/L Potassium 4.1 (3.4-5.0) mmol/L Chloride 109 H (98-107) mmol/L Carbon Dioxide 23 (22-30) mmol/L Anion Gap 10 (4-12) mmol/L BUN 16 (9-20) mg/dL Creatinine 1.42 H (0.7-1.3) mg/dL Estim Creat Clear Calc 54 ml/min Estimated GFR 52 L (59 - ) Glucose 148 H (65-110) mg/dL Calculated Osmolality 298 H (285-295) mOsm/kg Calcium 9.5 (8.4-10.2) mg/dL Total Bilirubin 0.4 (0.2-1.3) mg/dL AST 29 (17-59) U/L ALT 29 (6-50) U/L Alkaline Phosphatase 71 (38-126) U/L Troponin I < 0.012 (0.000-0.034) ng/mL NT-Pro-B Natriuret Pep 48 (19.9-100) pg/mL Total Protein 7.9 (6.3-8.2) g/dL Albumin 4.4 (3.5-5.1) g/dL Influenza A (RT-PCR) Negative (Negative) Influenza B (RT-PCR) Negative (Negative) RSV (RT-PCR) Negative (Negative) SARS-CoV-2 RNA (RT-PCR) Negative (Negative) ABG Data ABG results: 03/09/25 19:07 Puncture Site Left radial ABG pH 7.51 H ABG pCO2 27.0 L ABG pO2 66.3 L ABG HCO3 21.0 L ABG O2 Saturation 94.8 L ABG Base Excess -0.3 L Oxyhemoglobin 91.9 L O2 Delivery Device Room air O2 Liters/Min 0.0 Imaging Data Radiologist's impression: Impressions Chest X-Ray 03/09/25 19:12 Impression: No acute cardiopulmonary abnormality. ECG Data EKG #1: Attestation: I personally reviewed and interpreted this ECG as follows: ECG completion date: 03/09/25 Interpretation: Normal sinus rhythm at 91 beats per minute, anterior myocardial infarction of indeterminate age, abnormal EKG, no previous EKG available for comparison Critical Care Time Critical Care Time Critical Care Time: No Discharge Plan Discharge Clinical Impression: Asthma Patient Disposition: Home Condition: Improved Instructions: Antibiotic Form, Asthma (ED), How to Stop Smoking (ED) Additional Instructions: Return if symptoms are worsening , call your family physician for appointment, take Tylenol as as needed for aches and pain, continue home medications. Patient Language: Luxembourgish Prescriptions: New prednisone 20 mg tablet 40 mg PO DAILY 5 Days Qty: 10 0RF albuterol sulfate [Ventolin HFA] 90 mcg/actuation HFA aerosol inhaler 2 puff inhalation QID PRN (Reason: shortness of breath or wheezing) Qty: 8.5 0RF budesonide-formoterol [Symbicort] 160-4.5 mcg/actuation HFA aerosol inhaler 2 puff inhalation Q12H Qty: 10.2 0RF No Action albuterol sulfate [ProAir HFA] 90 mcg/actuation HFA aerosol inhaler 2 puff inhalation QID PRN (Reason: shortness of breath or wheezing) Qty: 6.7 0RF tamsulosin 0.4 mg capsule 0.4 mg PO Q24H pantoprazole 40 mg tablet,delayed release (DR/EC) 40 mg PO QAM Follow-up/Referrals: Obi Villa MD [Primary Care Provider, Internal Medicine] Stand Alone Forms: Work/School Release IP
[2025-03-09] MEDS: ALBUTEROL SULFATE NEB 2.5 MG/3 ML INH 10 MG INHALATION (18:56)
[2025-03-09] MEDS: IPRATROPIUM BR 0.02% INH SOLN 0.5 MG/2.5 ML VIAL INHALATION (18:56)
[2025-03-09 19:11] LABS: HCO3 ABG 21.0 mmol/L (23-29); Oxygen Saturation ABG 94.8 % (95-97); PCO2 ABG 27.0 mmHg (35-45); PO2 ABG 66.3 mmHg (80-90)
--- OUTSIDE RECORDS SUMMARY | 2025-03-09 19:13 | XMS_ITS | Clinical Summary ---
Author Organization [facility] Address [address] [place] [id number] Care Team Providers Care Tin Roofer Name Role Phone Obi Villa MD Primary Care Provider [phone] Allergies Active Allergy Reactions Criticality Noted Date [...] on file Legal Sex Male 5:55 PM [employer] Gender Identity Not on file Sexual Orientation [...] to complete this topic Insurance Care Teams Tin Roofer Relationship Specialty Start Date End Date Obi Villa MD [address] [place] [address] PCP - General INTERNAL MEDICINE 11/09/19
--- OUTSIDE RECORDS SUMMARY | 2025-03-09 19:13 | XMS_ITS | Encounter Summary ---
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
[2025-03-09 19:15] LABS: Hematocrit 47.4 % (40.0-54.0); Hemoglobin 16.0 g/dL (14.0-18.0); Immature Granulocyte Percent A 0.2 % (0.0-0.0); Liters per Minute 0.0 LPM; Lymphocytes Absolute Auto 2.26 K/mm3 (1.10-4.50); Mean Corpuscular HGB Conc 33.8 g/dL (32-36); Mean Corpuscular Hemoglobin 30.4 pg (27.0-31.0); Mean Corpuscular Volume 89.9 fL (78.0-102.0); Modified Allen's Test Pass; Nucleated Red Blood Cells Absolute Auto 0.00 K/mm3 (0.00-0.00); Nucleated Red Blood Cells Perc 0.0 % (0-0.0); Platelet Count Result 239 K/mm3 (150-420); Red Blood Count 5.27 M/mm3 (4.70-6.10); Site Drawn LEFT RADIAL; White Blood Count 12.4 K/mm3 (4.8-10.8)
[2025-03-09 19:29] LABS: Alanine Aminotransferase 29 U/L (6-50); Albumin Level 4.4 g/dL (3.5-5.1); Alkaline Phosphatase 71 U/L (38-126); Anion Gap 10 mmol/L (4-12); Aspartate Amino Transferase 29 U/L (17-59); Bilirubin,Total 0.4 mg/dL (0.2-1.3); Blood Urea Nitrogen 16 mg/dL (9-20); Calcium 9.5 mg/dL (8.4-10.2); Carbon Dioxide 23 mmol/L (22-30); Chloride 109 mmol/L (98-107); Estimated CRCL calculation 54 ml/min; Estimated Glomerular Filt Rate 52; Glucose 148 mg/dL (65-110); Osmolality Calculated 298 mOsm/kg (285-295); Potassium 4.1 mmol/L (3.4-5.0); Sodium 142 mmol/L (137-145); Total Protein 7.9 g/dL (6.3-8.2)
[2025-03-09 19:38] LABS: NT Pro B Type Natriuretic Pept 48 pg/mL (19.9-100)
[2025-03-09 19:40] LABS: Troponin I < 0.012 ng/mL (0.000-0.034)
[2025-03-09 19:57] LABS: Influenza A QL RT-PCR Negative (Negative); Influenza B QL RT-PCR Negative (Negative); RSV RNA, RT-PCR Negative (Negative); SARS-CoV-2 RNA PCR Negative (Negative)
[2025-03-09 20:30] VITALS: BP 148/72; PULSE 89; RESP 20; O2SAT 93
== END 2025-03-09 20:37 | disposition home or self-care (01) ==
PROVIDERS: Emergency Provider Emergency Medicine; PCP Internal Medicine
DX: J45.909 Unspecified asthma, uncomplicated (principal); F17.210 Nicotine dependence, cigarettes, uncomplicated; Z20.822 Contact with and (suspected) exposure to COVID-19
CPT/HCPCS: 36415; 36600; 71045; 80053; 82805; 83880; 84484; 85025; 87637; 93005; 99284; J7512